=== PATIENT | female | born 1985 | race African-American/Black ===

== ENCOUNTER 2018-10-18 02:06 | Emergency (ER) | payer OTHER ==
[~2018-10-18] VITALS: Ht 167.6 cm; Wt 95.2 kg
[~2018-10-18 02:06] MED LIST: BIRTH CONTROL; Bactrim Ds Tab1 EACH PO; CYCL10 PO; Cipro500 MG PO; IBUP600 PO; LEVFLO500 PO; Macrodantin100 MG PO; Percocet 5-3251 EACH PO; Prednisone20 MG PO; Pyridium100 MG PO; Pyridium200 MG PO; SPIR25 PO; Sprintec1 EACH PO; Ultram50 MG PO; VITAMIN D-32000 UNI1 PO; Zofran Odt8 MG SL
[2018-10-18] MEDS ORDERED: METOPROLOL (02:26)
[2018-10-18] MEDS ORDERED: BACTRIM (02:26)
[2018-10-18] MEDS ORDERED: PRAM.5 PO (02:26)
[2018-10-18] MEDS ORDERED: BIRTH CONTROL (02:27)
[2018-10-18 02:55] LABS: BASOPHILS ABSOLUTE AUTO 0.02 K/mm3 (0.00-0.23); BASOPHILS PERCENT AUTO 0 % (0-2); EOSINOPHILS ABSOLUTE AUTO 0.13 K/mm3 (0.00-0.68); EOSINOPHILS PERCENT AUTO 2 % (0-6); Hematocrit 38.4 % (33.0-51.0); Hemoglobin 12.7 g/dL (11.5-16.0); IMMATURE GRAN ABSOLUTE AUTO 0.01 K/mm3 (0.00-0.10); IMMATURE GRAN PERCENT AUTO 0 % (0-1); LYMPHOCYTES ABSOLUTE AUTO 3.97 K/mm3 (0.84-5.20); LYMPHOCYTES PERCENT AUTO 52 % (21-46); MONOCYTES ABSOLUTE AUTO 0.48 K/mm3 (0.16-1.47); MONOCYTES PERCENT AUTO 6 % (4-13); Mean Corpuscular HGB Conc 33.1 g/dL (31.5-36.5); Mean Corpuscular Volume 91 fL (80-100); Mean Platelet Volume 10.5 fL (9.1-12.4); NEUTROPHILS ABSOLUTE AUTO 3.05 K/mm3 (1.96-9.15); NEUTROPHILS PERCENT AUTO 40 % (41-73); Platelet Count 244 K/mm3 (150-400); RDW Coefficient Variation 12.2 % (11.7-14.2); RDW Standard Deviation 40.5 fL (35.1-46.3); Red Blood Cell Count 4.23 M/mm3 (3.80-5.20); White Blood Cell Count 7.66 K/mm3 (4.00-11.30)
[2018-10-18 03:15] LABS: Alanine Aminotransfer (ALT/SGP 27 U/L (12-78); Albumin, Blood 3.5 g/dL (3.4-5.0); Albumin/Globulin Ratio 0.9 (0.8-1.8); Alk Phos 47 U/L (50-136); Anion Gap 7 mmol/L (6-16); Aspartate Aminotrans (AST/SGOT 14 U/L (12-37); Bilirubin, Total 0.2 mg/dL (0.1-1.0); Blood Urea Nitrogen 12 mg/dL (8-24); CO2, Blood 28 mmol/L (21-32); Calcium, Blood 8.7 mg/dL (8.5-10.1); Chloride, Blood 106 mmol/L (98-108); Creatinine, Blood 0.75 mg/dL (0.40-1.00); Glomerular Filtration Rate >60 (60-); Glucose, Blood 88 mg/dL (70-99); Potassium, Blood 3.8 mmol/L (3.5-5.5); Sodium, Blood 141 mmol/L (136-145); Total Protein, Blood 7.5 g/dL (6.4-8.2); Troponin I <0.015 ng/mL (0.000-0.040)
== END 2018-10-18 04:36 | disposition home or self-care (01) ==
LOC: ER 02:06
PROVIDERS: Emergency Medicine
DX: R07.9 Chest pain, unspecified (principal); I10 Essential (primary) hypertension; Z87.891 Personal history of nicotine dependence; Z88.5 Allergy status to narcotic agent; Z79.899 Other long term (current) drug therapy; E78.5 Hyperlipidemia, unspecified; F32.9 Major depressive disorder, single episode, unspecified; G43.909 Migraine, unspecified, not intractable, without status migrainosus
CPT/HCPCS: 36415; 71046; 80053; 84484; 85025; 93005; 93010; 99285-25

== ENCOUNTER 2019-01-11 02:08 | Emergency (ER) | payer OTHER ==
[~2019-01-11] VITALS: Ht 167.6 cm; Wt 96.2 kg
[~2019-01-11 02:08] MED LIST changes: +BACTRIM; +METOPROLOL; +PRAM.5 PO
[2019-01-11] MEDS ORDERED: Amoxicillin500 MG PO (02:18)
== END 2019-01-11 05:00 | disposition home or self-care (01) ==
LOC: ER 02:08
DX: S93.401A Sprain of unspecified ligament of right ankle, initial encounter (principal); Z87.440 Personal history of urinary (tract) infections; Z87.891 Personal history of nicotine dependence; Z88.5 Allergy status to narcotic agent; Z79.899 Other long term (current) drug therapy; X50.1XXA Overexertion from prolonged static or awkward postures, initial encounter
CPT/HCPCS: 73610; 99283-25

== ENCOUNTER 2022-01-17 19:13 | Emergency (ER) | payer OTHER ==
[~2022-01-17] VITALS: Ht 167.6 cm; Wt 86.2 kg
[~2022-01-17 19:13] MED LIST changes: +Amoxicillin500 MG PO
[2022-01-17 21:01] LABS: Influenza A, PCR POSITIVE (NEGATIVE); Influenza B, PCR NEGATIVE (NEGATIVE); Resp Syncytial Virus, PCR NEGATIVE (NEGATIVE); SARS-Cov-2 (COVID-19) PCR, MMC NEGATIVE (NEGATIVE)
[2022-01-17] MEDS ORDERED: AMLODIPINE BESYL5 MG PO (21:11)
== END 2022-01-17 21:34 | disposition other institution (70) ==
LOC: ER 19:13
PROVIDERS: Student in an Organized Health Care Education/Training Program
DX: J10.1 Influenza due to other identified influenza virus with other respiratory manifestations (principal); I10 Essential (primary) hypertension; Z20.822 Contact with and (suspected) exposure to COVID-19; Z88.5 Allergy status to narcotic agent; Z79.899 Other long term (current) drug therapy; Z87.891 Personal history of nicotine dependence
CPT/HCPCS: 0241U; A9270

== ENCOUNTER → 2025-02-11 | Emergency (ER) | payer OTHER ==
[~2025-02-11] VITALS: Ht 167.6 cm; Wt 85.3 kg
[~2025-02-11] MED LIST changes: +AMLODIPINE BESYL5 MG PO; +EMTRICITABINE-1 EAC1 PO; +EUTHYROX50 MC1 PO; +ONDA4ODT MM; +RX PP Dolutegravir Sodium 1 PREPACK/5 TAB TABLET PO ONE; +RX PP Emtricitabine/Tenofovir(TDF) 1 PREPACK/5 TAB UD ONE; +TIVICAY50 MG PO
[2025-02-11 09:59] VITALS: BP 144/92
[2025-02-12 17:13] LABS: HIV 1,2 COMBO ANTIGEN/ANTIBODY Negative (Negative)
[2025-02-12 18:20] LABS: HEPATITIS B SURFACE ANTIBODY 215.7 IU/L
[2025-02-12 18:52] LABS: HBV CORE ANTIBODIES,TOTAL Negative (Negative)
== END ==
LOC: ER 06:43
PROVIDERS: Emergency Medicine
DX: S71.132A Puncture wound without foreign body, left thigh, initial encounter (principal); E78.5 Hyperlipidemia, unspecified; I10 Essential (primary) hypertension; Z77.21 Contact with and (suspected) exposure to potentially hazardous body fluids; Z87.891 Personal history of nicotine dependence; Z88.5 Allergy status to narcotic agent; Z79.890 Hormone replacement therapy; Z79.899 Other long term (current) drug therapy; W46.1XXA Contact with contaminated hypodermic needle, initial encounter
CPT/HCPCS: 99282; A9270